=== PATIENT | male | born 1960 | race Caucasian/White ===

== ENCOUNTER 2017-10-11 19:59 | Emergency (ER) | payer BC ==
[2017-10-11] MEDS ORDERED: Acetaminophen/HYDROcodone 325-10 MG Tab PO ONE (20:00)
--- NOTE | 2017-10-11 21:03 | EDM.PDOC ---
ED HPI GENERAL MEDICAL PROBLEM - General Chief Complaint: Back Pain or Injury Stated Complaint: [id number] FELL ON ICE Time Seen by Provider: 10/11/17 20:15 Source of Information: Reports: Patient History Limitations: Reports: No Limitations - History of Present Illness INITIAL COMMENTS - FREE TEXT/NARRATIVE: C/O pain to right posterior ribs after slipping getting into pickup. Fell back wards. Denies hitting head, no lass of consciousness. Denies other injury. Pian minimal at rest, worse with movement or coughing. 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 Right Back Pain Score (Numeric/FACES): 2 - Related Data Allergies Allergy/AdvReac Type Severity Reaction Status Date / Time No Known Drug Allergies Allergy Cannot Verified 10/11/17 20:03 Remember Home Meds: Home Meds NK [No Known Home Meds] 0 mg PO DAILY 10/11/17 [History] Past Medical History - Past Health History Medical/Surgical History: Denies Medical/Surgical History HEENT History: Reports: Impaired Vision - Infectious Disease History Infectious Disease History: Reports: Chicken Pox Social & Family History - Tobacco Use Smoking Status *Q: Never Smoker - Caffeine Use Caffeine Use: Reports: Coffee, Soda - Recreational Drug Use Recreational Drug Use: No ED ROS GENERAL - Review of Systems Review Of Systems: ROS reveals no pertinent complaints other than HPI. ED EXAM, UPPER BACK/NECK PAIN - Physical Exam Exam: See Below Exam Limited By: No Limitations General Appearance: Alert, Mild Distress Eye Exam: Bilateral Eye: EOMI Ears Exam: Normal External Exam Nose Exam: Normal Inspection Throat/Mouth Exam: Normal Inspection Head Exam: Atraumatic, Normocephalic Neck Exam: Non-Tender, Full Range of Motion Nexus Criteria: No: Posterior, Midline Cervical Tenderness, Evidence of Intoxication, Altered Level of Consciousness Cardiovascular/Respiratory: Regular Rate, Rhythm, Normal Peripheral Pulses, Normal Breath Sounds, No Respiratory Distress (slight decrease in bilateral bases. splinting with movment). No: Rales, Rhonchi GI/Abdominal: Soft Back Exam: Paraspinal Tenderness (right lateral mid thoracic). No: Vertebral Tenderness Extremities: Normal Inspection Skin Exam: Other (abrasion lateral posterior ribsbelos scapula) Course - Vital Signs Last Recorded V/S: Last Vital Signs Temp 97.9 F 10/11/17 20:04 Pulse 95 10/11/17 20:04 Resp 16 10/11/17 20:04 BP 160/79 H 10/11/17 20:04 Pulse Ox 98 10/11/17 20:04 - Orders/Labs/Meds Orders: Active Orders 24 hr Category Date Time Status Ribs 2V w Chest Rt [CR] Urgent Exams 10/11/17 20:10 Ordered Thoracic Spine 2V [CR] Urgent Exams 10/11/17 20:10 Ordered Departure - Departure Time of Disposition: 21:16 Disposition: Home, Self-Care 01 Condition: Good Clinical Impression: Contusion of rib on right side Qualifiers: Encounter type: initial encounter Qualified Code(s): S20.211A - Contusion of right front wall of thorax, initial encounter - Discharge Information Instructions: Rib Contusion Additional Instructions: tylenol or ibuprofen for mild to oderate pain Hydrocodone 10/325 one every 6 hours as needed for severe pain deep breathing every hour while awake splint ribs with coughing or sneezing - My Orders Last 24 Hours: My Active Orders 10/11/17 20:10 Ribs 2V w Chest Rt [CR] Urgent Thoracic Spine 2V [CR] Urgent - Assessment/Plan Last 24 Hours: My Active Orders 10/11/17 20:10 Ribs 2V w Chest Rt [CR] Urgent Thoracic Spine 2V [CR] Urgent
[2017-10-11] MEDS ORDERED: Acetaminophen/HYDROcodone 325-10 MG Tab ONE (21:13)
== END 2017-10-11 21:20 | disposition home or self-care (01) ==
LOC: DL.ED 19:59
DX: S20.211A Contusion of right front wall of thorax, initial encounter (principal); W00.0XXA Fall on same level due to ice and snow, initial encounter
CPT/HCPCS: 71101; 72070; 99283; A9270

== ENCOUNTER 2018-06-30 09:29 | Emergency (ER) | payer BC ==
[2018-06-30] MEDS ORDERED: Dexamethasone 4 MG/ML SDV IM ONE (10:09)
--- NOTE | 2018-06-30 10:16 | EDM.PDOC ---
Scribed by Alivia Berry 06/30/18 1015 for Ajay Hatch MD ED HPI GENERAL MEDICAL PROBLEM - General Chief Complaint: Lower Extremity Injury/Pain Stated Complaint: [id number] BAD RIGHT LEG Time Seen by Provider: 06/30/18 09:46 Source of Information: Reports: Patient, RN, RN Notes Reviewed History Limitations: Reports: No Limitations - History of Present Illness INITIAL COMMENTS - FREE TEXT/NARRATIVE: C/O pain that radiates from the right low back/buttock down the leg to the right foot. Pt has been treating with chiropractor and P.T. without relief. Denies any specific injury or Hx of high impact back injury. Denies loss of bowel or bladder control, saddle area numbness, or motor weakness. Onset: Gradual Duration: Chronic, Constant Location: Reports: Back, Lower Extremity, Right Quality: Reports: Ache, Burning, Same as Previous Episode, Sharp Severity: Severe Improves with: Reports: None Worsens with: Reports: None Associated Symptoms: Reports: No Other Symptoms Right Hip Pain Score (Numeric/FACES): 9 - Related Data Allergies Allergy/AdvReac Type Severity Reaction Status Date / Time No Known Drug Allergies Allergy Cannot Verified 06/30/18 09:36 Remember Home Meds: Home Meds . [No Known Home Meds] 06/30/18 [History] Past Medical History - Past Health History Medical/Surgical History: Denies Medical/Surgical History HEENT History: Reports: Impaired Vision Musculoskeletal History: Reports: Other (See Below) (sciatica) - Infectious Disease History Infectious Disease History: Reports: Chicken Pox Social & Family History - Family History Family Medical History: Noncontributory - Tobacco Use Smoking Status *Q: Never Smoker Second Hand Smoke Exposure: No - Caffeine Use Caffeine Use: Reports: Coffee, Soda - Recreational Drug Use Recreational Drug Use: No - Living Situation & Occupation 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 ED EXAM, GENERAL - Physical Exam Exam: See Below Exam Limited By: No Limitations General Appearance: Alert, WD/WN, No Apparent Distress Throat/Mouth: Normal Inspection Head: Atraumatic, Normocephalic Neck: Normal Inspection, Supple, Non-Tender, Full Range of Motion Respiratory/Chest: No Respiratory Distress, Lungs Clear, Normal Breath Sounds, No Accessory Muscle Use, Chest Non-Tender Cardiovascular: Normal Peripheral Pulses, Regular Rate, Rhythm GI/Abdominal: Normal Bowel Sounds, Soft, Non-Tender, No Distention, No Abnormal Bruit Back Exam: Normal Inspection, Full Range of Motion. No: CVA Tenderness (L), CVA Tenderness (R), Paraspinal Tenderness, Vertebral Tenderness Extremities: Normal Inspection, Normal Range of Motion, Non-Tender, Normal Capillary Refill, No Pedal Edema Neurological: Alert, Oriented, CN II-XII Intact, Normal Cognition, Normal Gait, No Motor/Sensory Deficits Psychiatric: Normal Affect, Normal Mood Skin Exam: Warm, Dry, Intact, Normal Color, No Rash Course - Vital Signs Last Recorded V/S: Last Vital Signs Temp 36.6 C 06/30/18 09:32 Pulse 80 06/30/18 09:32 Resp 18 06/30/18 09:32 BP 141/85 H 06/30/18 09:32 Pulse Ox 99 06/30/18 09:32 - Orders/Labs/Meds Orders: Active Orders 24 hr Category Date Time Status Dexamethasone Med 06/30/18 10:09 Once 10 mg IM ONETIME ONE Departure - Departure Time of Disposition: 10:10 Disposition: Home, Self-Care 01 Condition: Good Clinical Impression: Right lumbosacral radiculopathy - Discharge Information Instructions: Lumbosacral Radiculopathy Forms: ED Department Discharge Additional Instructions: Rx: Decadron (Dexamethasone) 4mg Rx: [place] (Hydrocodone APAP) 5mg/325mg *Do not drive or work while under the influence of this medication. Follow up in clinic this week for recheck and consideration of lumbar MRI. - My Orders Last 24 Hours: My Active Orders 06/30/18 10:09 Dexamethasone 10 mg IM ONETIME ONE - Assessment/Plan Last 24 Hours: My Active Orders 06/30/18 10:09 Dexamethasone 10 mg IM ONETIME ONE I have read and agree with the documentation that has been completed regarding this visit. By signing this record, I attest that the documentation was completed in my physical presence and is an accurate record of the encounter.
== END 2018-06-30 10:36 | disposition home or self-care (01) ==
LOC: DL.ED 09:29
DX: M54.17 Radiculopathy, lumbosacral region (principal)
CPT/HCPCS: 96372; 99283; J1100

== ENCOUNTER 2024-01-24 05:54 | Day surgery (SDC) | payer MEDICARE, BC ==
[2024-01-24] MEDS ORDERED: Midazolam 1 MG/ML 2 ML SDV ONE (06:05)
[2024-01-24] MEDS ORDERED: fentaNYL 100 MCG/2 ML SDV ONE (06:05)
[2024-01-24] MEDS: Dextrose 5%-0.45% NaCl 1,000 ML IV SCH (06:18)
[2024-01-24] MEDS: fentaNYL 100 MCG/2 ML SDV IV ONE ×2 (06:26→06:27)
[2024-01-24] MEDS: Midazolam 1 MG/ML 2 ML SDV IV ONE ×3 (06:28→06:37)
== END 2024-01-24 08:10 | disposition home or self-care (01) ==
LOC: DL.ENDO 05:54
PROVIDERS: ATTEND Internal Medicine Gastroenterology
DX: Z12.11 Encounter for screening for malignant neoplasm of colon (principal); K57.30 Diverticulosis of large intestine without perforation or abscess without bleeding
CPT/HCPCS: J2250; J3010; J7042

== ENCOUNTER 2025-09-14 12:34 | Emergency (ER) | payer MEDICARE, BC ==
[2025-09-14] MEDS ORDERED: Sodium Chloride 0.9% 10 ML Syringe FLUSH PRN (12:51)
[2025-09-14 12:57] LABS: BASOPHILS PERCENT AUTO 0.3 % (0.0-1.0); EOSINOPHILS PERCENT AUTO 1.3 % (1.0-3.0); LYMPHOCYTES PERCENT AUTO 18.9 % (20.5-50.1); MONOCYTES PERCENT AUTO 8.0 % (2-8); NEUTROPHILS PERCENT AUTO 71.5 % (42.2-75.2); PLATELET COUNT,PLT 219 10^3/uL (150-450); RED BLOOD CELL COUNT 4.54 10^6/uL (4.6-6.2); WHITE BLOOD CELL COUNT,WBC 8.8 10^3/uL (5.0-10.0)
[2025-09-14] MEDS: Iopamidol 755 Mg/ML 100 ML Bottle IVPUSH ONE (13:07)
[2025-09-14 13:10] LABS: INR 0.9 (0.9-1.2)
[2025-09-14 13:19] LABS: A/G RATIO 1.1; ALANINE AMINOTRANSFERASE,ALT 27.0 U/L (16-63); ASPARTATE AMNIOTRANSFERASE,AST 18.0 U/L (15-37); BILIRUBIN TOTAL 0.9 mg/dL (0.2-1.0); BLOOD UREA NITROGEN,BUN 20.0 mg/dL (7-18); CARBON DIOXIDE,CO2 28.0 mmol/L (21-32); CHLORIDE,CL 105.0 mmol/L (98-107); CREATININE 0.87 mg/dL (0.70-1.30); EST CRCL DRUG DOSING (CG) 90.43 mL/min; ESTIMATED GFR 95.0 mL/min (>=60); GLUCOSE RANDOM 126.0 mg/dL (70-99); POTASSIUM,K 4.0 mmol/L (3.5-5.1); PROTEIN TOTAL,TP 7.7 g/dL (6.4-8.2); SODIUM,NA 140.0 mmol/L (136-145)
== END 2025-09-14 14:34 | disposition home or self-care (01) ==
LOC: DL.ED 12:34
DX: G45.4 Transient global amnesia (principal)
CPT/HCPCS: 36415; 70450; 70496; 70498; 71045; 80053; 82947; 84484; 85025; 85610; 93005; 93010; 99284; 99285; Q9967